=== PATIENT | male | born 1960 | race African-American/Black ===

== ENCOUNTER 2024-09-24 10:34 | Emergency (ER) | payer MEDICARE ==
[2024-09-24] MEDS ORDERED: EPINEPHrine 1:10,000 [1 MG/10 ML] SYRINGE IVP ONE (10:39)
[2024-09-24] MEDS ORDERED: CITA-144 PO (11:03)
[2024-09-24] MEDS ORDERED: ARIP10TA38 PO (11:03)
== END 2024-09-24 14:13 ==
LOC: EMS 10:38
DX: I46.9 Cardiac arrest, cause unspecified (principal)
CPT/HCPCS: 99285; 92950; J0171